=== PATIENT | female | born 1960 | race African-American/Black ===

== ENCOUNTER 2024-02-14 07:15 | Day surgery (SDC) | payer OTHER ==
[~2024-02-14] VITALS: Ht 162.6 cm; Wt 112.5 kg
[2024-02-14] MEDS ORDERED: MIDAZOLAM 2 MG/2 ML VIAL ONE (09:39)
[2024-02-14] MEDS ORDERED: fentaNYL citrate 0.05 MG/ML VIAL ONE (09:39)
[2024-02-14] MEDS: MIDAZOLAM 2 MG/2 ML VIAL IVP ONE (10:00)
[2024-02-14] MEDS: fentaNYL citrate 0.05 MG/ML VIAL IVP ONE (10:01)
== END 2024-02-14 11:10 | disposition home or self-care (01) ==
LOC: MDS 07:15 → MMU 07:16 → MDS 11:10
PROVIDERS: ATTEND Internal Medicine Gastroenterology
DX: R13.12 Dysphagia, oropharyngeal phase (principal); I10 Essential (primary) hypertension; K76.0 Fatty (change of) liver, not elsewhere classified; Z87.01 Personal history of pneumonia (recurrent); Z88.0 Allergy status to penicillin; Z79.899 Other long term (current) drug therapy; Z98.890 Other specified postprocedural states
CPT/HCPCS: 43235; J2250; J3010